=== PATIENT | female | born 1950 | race Caucasian/White ===

== ENCOUNTER 2017-05-29 11:25 | Emergency (ER) | payer OTHER ==
--- NOTE | 2017-05-29 11:52 | CT REPORT ---
HISTORY: Headache, slurred speech, dizziness, incontinence. COMPARISON: CT head December 07, 2016.. TECHNIQUE: Dose reduction technique was utilized. Axial non-contrast images obtained from skull vertex through foramen magnum. Coronal reformats are obtained and reviewed. FINDINGS: BRAIN: No atrophy. No acute intracranial hemorrhage. No mass effect or hydrocephalus. No CT evidence of infarction. BONES AND EXTRACRANIAL SOFT TISSUES: The orbits are unremarkable. The paranasal sinuses and mastoid a ir cells are clear. The calvarium is intact. IMPRESSION: Normal head CT. Final Electronic Signature: This report was electronically signed by Troy Tee MD on 05/29/2017 11:50 AM. ox / / [facility] [phone]
[2017-05-29 12:03] LABS: BLOOD UREA NITROGEN 21 mg/dL (7-17); CALCIUM 9.5 mg/dL (8.4-10.2); CHLORIDE 104 mmol/L (98-107); EST GLOMERULAR FILTRATION RATE > 60 mL/min; GLUCOSE 97 mg/dL (70-100); POTASSIUM 3.2 mmol/L (3.5-5.1); SODIUM 140 mmol/L (137-145)
[2017-05-29 12:15] LABS: WHITE BLOOD COUNT 6.2 X 10^3uL (3.9-10.7)
[2017-05-29 12:16] LABS: BASOPHILS 0.4 % (0.0-2.0); EOSINOPHILS 1.5 % (0.0-6.0); EOSINOPHILS# 0.1 X 10^3uL (0.0-0.4); HEMOGLOBIN 14.5 g/dL (12.0-16.0); LYMPHOCYTES 32.4 % (20.0-40.0); MEAN CORPUS. HGB CONCENTRATION 33.8 g/dL (32.0-36.0); MEAN CORPUSCULAR HEMOGLOBIN 30.2 pg (29.0-35.0); MEAN PLATELET VOLUME 8.4 fL (7.4-10.4); MONOCYTES 8.2 % (2.0-10.0); MONOCYTES# 0.5 X 10^3uL (0.2-1.0); NEUTROPHILS 57.5 % (54.0-75.0); NEUTROPHILS# 3.6 X 10^3uL (2.6-6.7); PLATELET COUNT 245 X 10^3uL (130-440); RED CELL DISTRIBUTION WIDTH 12.7 % (11.5-14.5)
--- NOTE | 2017-05-29 12:46 | ER PHYSICIAN DOCUMENTATION ---
Physician Documentation [facility] Name:Nesha Thorne Age:66 yrs Sex:Female :1950 Arrival Date:05/29/2017 Time:: BedTrauma-A Private MD: Oleksandr Beltrán Disposition: 05/29/17 12:44 Transfer ordered to [facility]. Diagnosis is Altered Mental Status. - Reason for transfer: Higher level of care. - Accepting physician is Dr. Donahue. - Condition is Fair. - Problem is new. - Symptoms are unchanged. COBRA Form completed? Yes Transfer - Mode of Transportation Ambulance HPI: 05/29 11:41 This 66 yrs old Female presents to ER with complaints of headache. jm 11:41 The patient complains of pain to the forehead. The patient describes the headache as jm pounding. Onset: The symptoms/episode began/occurred today. Associated signs and symptoms: Pertinent positives: blurred vision, confusion . Headache History: The patient has had previous headaches. Risk factors for subarachnoid hemhorrage: first degree relative with subarachnoid hemhorrage. The patient has not experienced similar symptoms in the past. 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 Apparently, pt called daughter and daughter said she was talking very slowly, so she came over to check on her and she was naked in bed staring up. She was c/o of UMAÑA and blurry vision. Daughter got her in the car and drove her over. Daughter is very worried about a stroke given her hx of TBI. . Historical: - Allergies: CT dye; Theodur; Milk/dairy products; - Home Meds: 1. Triamterene-Hydrochlorothiazid Oral 2. gabapentin oral 3. Potassium Chloride Oral 4. Synthroid oral 5. estrogen 6. BP med (HCTZ?) 7. Paxil Oral - PMHx: HYPOTHYROIDISM; HYPERTENSION; ovarian cancer; Altered Mental Status (December 07, 2016); Bladder Infection (UTI)(December 07, 2016); Dehydration (December 07, 2016); Hypokalemia (December 07, 2016); Dizziness - Vertigo (December 07, 2016); TBI; - PSHx: TONSILLECTOMY; APPENDECTOMY; CHOLECYSECTOMY; partial thyroidectomy; right hip replacement; - Tetanus: unknown. - Ebola Screening: : Patient negative for fever greater than or equal to 101.5 degrees Fahrenheit, and additional compatible Ebola Virus Disease symptoms. Patient denies exposure to infectious person. Patient denies travel to an Ebola-affected area in the 21 days before illness onset. No symptoms or risks identified at this time. . - Immunization history: Flu Vaccine unknown. - Social history: Smoking status: unknown if patient ever smoked tobacco. ROS: 12:38 Constitutional: Positive for fatigue, Negative for fever, malaise. jm 12:38 Eyes: Positive for blurry vision, visual disturbance. 12:38 ENT: Negative for sinus pain, sore throat. 12:38 Neck: Negative for injury or acute deformity. 12:38 Cardiovascular: Negative for chest pain. 12:38 Respiratory: Negative for cough, shortness of breath. 12:38 Abdomen/GI: Negative for abdominal pain, nausea, vomiting. 12:38 MS/extremity: Negative for paresthesias. 12:38 Neuro: Positive for altered mental status, headache, weakness. 12:38 Psych: Negative for anxiety, depression. 12:38 All other systems are negative. Exam: 12:39 Constitutional: The patient appears alert, awake, obese. jm 12:39 Eyes: Periorbital structures: appear normal, Pupils: equal, round, and reactive to light and accomodation, Extraocular movements: intact throughout. 12:39 ENT: Mouth: is normal, Voice: is normal. 12:39 Neck: C-spine: appears grossly normal, Thyroid: appears normal. 12:39 Cardiovascular: Rate: normal, Rhythm: regular. 12:39 Respiratory: the patient does not display signs of respiratory distress, Respirations: normal. 12:39 Abdomen/GI: Bowel sounds: normal, Palpation: abdomen is soft and non-tender. 12:39 Skin: Appearance: Color: pink, no rash present. 12:39 Neuro: Mentation: slow to respond, confused, Cranial nerves: normal except tongue, Motor: R sided weakness. 12:39 Psych: Behavior/mood is pleasant, cooperative, Affect is flat. Vital Signs: 11:29 BP 153 / 83 (auto/); Pulse 58; Resp 17; Temp 98.9(TE); Pulse Ox 95% on R/A; Weight rh 99.79 kg; Height 5 ft. 7 in. (170.18 cm); Pain 0/10; 11:43 BP 136 / 75 (auto/); rh 11:48 Pulse 58 MON; Resp 15; rh 12:00 BP 119 / 71 (auto/); rh 12:03 Pulse 50 MON; Resp 19; Pulse Ox 90% ; rh 11:29 Body Mass Index 34.46 (99.79 kg, 170.18 cm) rh NIH Stroke Scale Scores: 11:51 NIHSS Score: 6 tg MDM: 11:30 Patient medically screened. 12:21 EKG attached lp 12:41 Differential diagnosis: cerebral vascular accident, migraine, traumatic injuries, jm concusion. Data reviewed: vital signs, nurses notes, old medical records, lab test result(s), EKG, radiologic studies, and as a result, I will *Transfer Patient. Test interpretation: by ED physician or midlevel provider: ECG. Counseling: I had a detailed discussion with the patient and/or guardian regarding: the historical points, exam findings, and any diagnostic results supporting the discharge/admit diagnosis, lab results, radiology results, the need to transfer to another facility. Physician consultation: Dr. Donahue. 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 Either way, we don't have a great start time for her sx, so she is not a TPA candidate. Dr. Donahue has agreed to accept transfer to [facility]. . 05/29 12:06 Order name: BASIC METABOLIC PANEL; Complete Time: 12:25 [facility] 05/29 12:17 Order name: CBC AUTO DIF, MDIF/RMOR IF IND; Complete Time: 12: [facility] 05/29 13:47 Order name: UA W/ MICRO -CULTURE IF IND [facility] 05/30 08:28 Order name: URINE CULTURE [facility] 05/31 11:30 Order name: GRAM POSITIVE COMBO 34 [facility] 05/29 11:54 Order name: CAT SCAN; HEAD W/O CON 20702; Complete Time: 12:25 [facility] 05/29 11:31 Order name: 12-lead EKG; Complete Time: 11:46 05/29 11:31 Order name: Continuous Cardiac Monitoring; Complete Time: 11:34 05/29 11:31 Order name: I & O; Complete Time: 11:34 05/29 11:31 Order name: IV saline lock X2; Complete Time: : 05/29 11:31 Order name: NIH Stroke Scale; Complete Time: 12:24 05/29 11:31 Order name: NPO; Complete Time: 05/29 11:31 Order name: Pulse Ox Continuous; Complete Time: 05/29 11:31 Order name: Accucheck; Complete Time: 05/29 12:24 Order name: Urine Dip; Complete Time: 12:24 tg Dispensed Medications: No medications were administered Point of Care Testing: Blood Glucose: Blood Glucose: 105 mg/dL; rh Urine Dip: : pH: 7; ; Specific [place]: 1.01; Ketones: Negative; Glucose: Negative; Protein: tg Negative; Leukocytes: Trace; Nitrite: Negative ; Blood: Negative; Bilirubin: Negative ; Urobilinogen: Normal Ranges: Critical Glucose Levels:Adult <50 mg/dl or >400 mg/dl <40 mg/dl or >180 mg/dl NIH Stroke Scale - NIH Stroke Score Date: 05/29/2017 Time: Total Score = 6 1a. Level of Consciousness (LOC) - 0(Alert) 1b. Level of Consciousness (LOC) (Year & Age) - 0(Both) 1c. LOC Commands (Open & Closes Eyes/Speech Pathology Assistant) - 0(Both) 2. Best Gaze (Lateral Gaze Paresis) - 0(Normal) 3. Visual Field Loss - 0(No visual loss) 4. Facial Palsy - 1(Minor Paralysis) 5a. Left Arm: Motor (10-second hold) - 0(No drift) 5b. Right Arm: Motor (10-second hold) - 2(Drift, some effort against gravity) 6a. Left Leg: Motor (5-second hold ? always test supine) - 0(No drift) 6b. Right Leg: Motor (5-second hold ? always test supine) - 2(Drift, some effort against gravity) 7. Limb Ataxia (finger/nose & heel/torres ? test with eyes open) - 0(Absent) 8. Sensory Loss (pinprick arms/legs/face) - 0(Normal) 9. Best Language: Aphasia (description/naming/reading) - 0(No aphasia) 10. Dysarthria (speech clarity ? read or repeat words) - 1(Mild to Moderate) 11. Extinction and Inattention (visual/tactile/auditory/spatial/personal) - 0(No abnormality) Initials: tg Signatures: Dallin Mccall RN RN tg Pavlish, Lena, RN RN lp Meyer, John, MD MD jm
--- NOTE | 2017-05-29 12:46 | ER NURSING DOCUMENTATION ---
Nurse's Notes [facility] Name:Nesha Thorne Age:66 yrs Sex:Female :1950 Arrival Date:05/29/2017 Time:11:25 BedTrauma-A Private MD: Diagnosis:Altered Mental Status Presentation: 05/29 11:28 Acuity: DINAH 2 lp 12:03 Presenting complaint: Daughter states: Pt called daughter from work, was not making tg sense, reported being incontinent of urine. Daughter picked up pt, suspecting a stroke, and brought her to the ED. Daughter reported that pt is usally fully A&O x4, and that this is very unusual behavior/symptoms. Transition of care: patient was not received from another setting of care. 12:03 Method Of Arrival: Private Vehicle tg Triage Assessment: 11:39 General: Appears uncomfortable, Behavior is cooperative, flat. Pain: Complains of pain tg in forehead. Neuro: Level of Consciousness is awake, confused, Oriented to person, place, Neuro: Speech Clear, but s little slow to answer. Facial droop on left. Respiratory: Respiratory effort is even, unlabored. : Reports incontinence. Derm: Skin is pink, warm & dry. 11:53 General:. tg Historical: - Allergies: CT dye; Theodur; Milk/dairy products; - Home Meds: 1. Triamterene-Hydrochlorothiazid Oral 2. gabapentin oral 3. Potassium Chloride Oral 4. Synthroid oral 5. estrogen 6. BP med (HCTZ?) 7. Paxil Oral - PMHx: HYPOTHYROIDISM; HYPERTENSION; ovarian cancer; Altered Mental Status (December 07, 2016); Bladder Infection (UTI)(December 07, 2016); Dehydration (December 07, 2016); Hypokalemia (December 07, 2016); Dizziness - Vertigo (December 07, 2016); TBI; - PSHx: TONSILLECTOMY; APPENDECTOMY; CHOLECYSECTOMY; partial thyroidectomy; right hip replacement; - Tetanus: unknown. - Ebola Screening: : Patient negative for fever greater than or equal to 101.5 degrees Fahrenheit, and additional compatible Ebola Virus Disease symptoms. Patient denies exposure to infectious person. Patient denies travel to an Ebola-affected area in the 21 days before illness onset. No symptoms or risks identified at this time. . - Immunization history: Flu Vaccine unknown. - Social history: Smoking status: unknown if patient ever smoked tobacco. Screenin:35 Infectious Disease Risk None. Abuse screen: Denies threats or abuse. Denies injuries rh from another. Nutritional screening: No deficits noted. Assessment: 11:51 Pain: Complains of pain in forehead. tg 12:10 Reassessment: Last known normal is vague, per daughter. Pt has been "spacey" at work tg the past few days, per her co-workers. . Vital Signs: 11:29 BP 153 / 83 (auto/); Pulse 58; Resp 17; Temp 98.9(TE); Pulse Ox 95% on R/A; Weight rh 99.79 kg; Height 5 ft. 7 in. (170.18 cm); Pain 0/10; 11:43 BP 136 / 75 (auto/); rh 11:48 Pulse 58 MON; Resp 15; rh 12:00 BP 119 / 71 (auto/); rh 12:03 Pulse 50 MON; Resp 19; Pulse Ox 90% ; rh 11:29 Body Mass Index 34.46 (99.79 kg, 170.18 cm) rh NIH Stroke Scale Scores: 11:51 NIHSS Score: 6 tg ED Course: 11:26 Patient arrived in ED. jl 11:26 clinical research monitor on. Pulse ox on. NIBP on. rh 11:28 Triage completed. lp 11:30 Oleksandr Wiseman MD is Attending Physician. 11:30 Inserted peripheral IV: 20 gauge in left antecubital area and blood collected. rh 11:35 Valuables Remains with patient Patient has correct armband on for positive rh identification. Placed in gown. Bed in low position. Call light in reach. Side rails up X 1. 11:39 Dallin Mccall, LOC is Primary Nurse. tg 11:41 EKG done. (by ED staff). Reviewed by Oleksandr Wiseman MD. rh 12:21 EKG attached lp Administered Medications: No medications were administered Point of Care Testing: Blood Glucose: 11:34 Blood Glucose: 105 mg/dL; rh Urine Dip: 12:25 pH: 7; ; Specific Telephone: 1.01; Ketones: Negative; Glucose: Negative; Protein: tg Negative; Leukocytes: Trace; Nitrite: Negative ; Blood: Negative; Bilirubin: Negative ; Urobilinogen: Normal Ranges: Output: 12:36 Urine: 500ml (Voided); Total: 500ml. tg Outcome: 12:37 Transferred: Patient will be transferred to: [facility] tg Acceptance Time: May 29, 2017 at 12:15 Patient's face sheet was faxed to accepting facility. Face Sheet included patient's name, address, age, gender, contact information and insurance information. Patient will be transported by: [facility] [place] [place] [facility] ground. Nurse and Physician Charting and Notes were sent to Accepting Facility. All tests and/or procedures with results, if applicable, were sent to accepting facility. 12:37 Transferred: Report called to: [facility] 12:37 Condition: unchanged 12:37 Discharge Assessment: Patient awake, confused. 12:37 Discharge instructions given to patient, family, Instructed on need for transfer 12:42 Discharge Assessment: Pt loaded on EMS bed, moved to the ambulance tg 12:44 ER care complete, transfer ordered by MD. mayes 12:45 Patient left the ED. tg NIH Stroke Scale - NIH Stroke Score Date: 05/29/2017 Time: 11:51 Total Score = 6 1a. Level of Consciousness (LOC) - 0(Alert) 1b. Level of Consciousness (LOC) (Year & Age) - 0(Both) 1c. LOC Commands (Open & Closes Eyes/Wrapper [place]) - 0(Both) 2. Best Gaze (Lateral Gaze Paresis) - 0(Normal) 3. Visual Field Loss - 0(No visual loss) 4. Facial Palsy - 1(Minor Paralysis) 5a. Left Arm: Motor (10-second hold) - 0(No drift) 5b. Right Arm: Motor (10-second hold) - 2(Drift, some effort against gravity) 6a. Left Leg: Motor (5-second hold ? always test supine) - 0(No drift) 6b. Right Leg: Motor (5-second hold ? always test supine) - 2(Drift, some effort against gravity) 7. Limb Ataxia (finger/nose & heel/torres ? test with eyes open) - 0(Absent) 8. Sensory Loss (pinprick arms/legs/face) - 0(Normal) 9. Best Language: Aphasia (description/naming/reading) - 0(No aphasia) 10. Dysarthria (speech clarity ? read or repeat words) - 1(Mild to Moderate) 11. Extinction and Inattention (visual/tactile/auditory/spatial/personal) - 0(No abnormality) Initials: tg Signatures: Dallin Mccall RN RN tg Debbi Arguello RN RN lp Meyer, John, MD MD jm Hofsess, Rachel rh Lietz, Jeff jl
[2017-05-29 13:15] LABS: URINE MUCUS NONE SEEN (Up to 25%); URINE RBC NONE SEEN (0-5/hpf); URINE WBC NONE SEEN (0-4/hpf)
[2017-05-29 13:45] LABS: URINE COLOR YELLOW
[2017-05-29 13:46] LABS: URINE APPEARANCE CLEAR; URINE BILIRUBIN NEGATIVE (NEGATIVE); URINE BLOOD NEGATIVE (NEGATIVE); URINE GLUCOSE NORMAL (NEGATIVE); URINE KETONE NEGATIVE (NEGATIVE); URINE LEUKOCYTE ESTERASE 25 WBC/uL (1+) (NEGATIVE); URINE NITRITE NEGATIVE (NEGATIVE); URINE PH 6.5 (5-7); URINE PROTEIN NEGATIVE (NEG - TRACE); URINE UROBILINOGEN 0.2mg/dL (Normal) (NEG-1mg/dL)
[2017-05-29 13:47] LABS: URINE BACTERIA NONE SEEN (<10/hpf); URINE SPERM NONE SEEN; URINE SQUAMOUS EPITHELIAL CELL 0-5/hpf (<= 15/hpf)
[2017-05-29] MEDS ORDERED: FENTANYL 100 MCG/2 ML VIAL ONE (15:50)
== END 2017-05-29 12:46 | disposition short-term general hospital (02) ==
LOC: ER 11:25
DX: R41.82 Altered mental status, unspecified (principal); R51 Headache; H53.8 Other visual disturbances; R53.83 Other fatigue; R53.1 Weakness; R47.81 Slurred speech; S06.890S Other specified intracranial injury without loss of consciousness, sequela; R29.706 NIHSS score 6; Z99.89 Dependence on other enabling machines and devices; Z74.3 Need for continuous supervision
CPT/HCPCS: 70450; 80048; 81001; 85025; 87077; 87086; 87186; 93005; 99285; A0425; A0427; J3010